=== PATIENT | male | born 1955 | race Caucasian/White ===

== ENCOUNTER → 2023-05-17 11:43 | Outpatient (BNVA) | payer MEDICARE, SELFPAY | PROVIDERS: PCP Family Medicine; Visit Provider Nurse Practitioner Family | DX: E55.9 Vitamin D deficiency, unspecified (principal); Z13.6 Encounter for screening for cardiovascular disorders; Z79.899 Other long term (current) drug therapy; Z12.5 Encounter for screening for malignant neoplasm of prostate; R10.13 Epigastric pain; Z12.11 Encounter for screening for malignant neoplasm of colon | CPT/HCPCS: 80053; 80061; 81003; 82150; 82306; 83036; 83690; 84443; 85025; G0103 ==

== ENCOUNTER 2023-05-25 14:23 | Outpatient (CLI) | payer MEDICARE, SELFPAY ==
--- NOTE | 2023-05-25 14:30 | CTR_ITS ---
PROCEDURE INFORMATION: Exam: CT Abdomen And Pelvis With Contrast Exam date and time: 05/25/2023 3:43 PM Age: 68 years old Clinical indication: Generalized; Patient HX: All over abdominal pain and into back x 3 months; Additional info: R10.9 - unspecified abdominal pain TECHNIQUE: Imaging protocol: Computed tomography of the abdomen and pelvis with contrast. Radiation optimization: All CT scans at this facility use at least one of these dose optimization techniques: automated exposure control; mA and/or kV adjustment per patient size (includes targeted exams dose is matched to clinical indication); or iterative reconstruction. Contrast material: OMNIPAQUE 350; Contrast volume: 95 ml; Contrast route: INTRAVENOUS (IV); Other contrast: Oral, omnipaque 350, 40ml; REPORTING DATA: Count of CT and Cardiac NM exams in prior 12 months: This patient has received 0 known CTs and 0 known cardiac nuclear medicine studies in the 12 months prior to the current study. COMPARISON: No relevant prior studies available. RADIATION DOSE METRICS: Total DLP (mGy-cm): 570 FINDINGS: Liver: No acute findings. Gallbladder and bile ducts: No acute findings. Pancreas: 2.5 x 3 cm pancreatic lesion at the head/uncinate. Peripancreatic edema is present. No loculated collection no ductal dilatation. Spleen: No splenomegaly. Adrenal glands: No mass. Kidneys and ureters: No hydronephrosis. Stomach and bowel: No obstruction. Appendix: No evidence of appendicitis. Intraperitoneal space: No free air. No significant fluid collection. Vasculature: No abdominal aortic aneurysm. Proximal SMA closely abuts the above described pancreatic lesion with mild narrowing such as on series 3, image 35. Lymph nodes: No enlarged lymph nodes. Urinary bladder: Incompletely distended with circumferential wall thickening likely secondary to outlet obstruction. Reproductive: Prostatomegaly. Bones/joints: Degenerative changes without acute findings. Soft tissues: Unremarkable. CT/CT abdomen pelvis w con* [id number] IMPRESSION: Peripancreatic edema suggestive of acute pancreatitis if there is correlating elevated lipase. No loculated collection. 3 cm pancreatic lesion at the head/uncinate. Pancreatic MRI recommended for further characterization.
[2023-05-25] MEDS: iohexol 350 mg/mL 500 mL Btl (per mL) IV (15:46)
[2023-05-25] MEDS: iohexol 350 mg/mL 500 mL Btl (per mL) PO (15:46)
== END 2023-05-25 14:24 | disposition home or self-care (01) ==
PROVIDERS: PCP Family Medicine; Visit Provider Nurse Practitioner Family
DX: R10.9 Unspecified abdominal pain (principal); K86.89 Other specified diseases of pancreas
CPT/HCPCS: 74177; Q9967

== ENCOUNTER 2023-05-31 12:42 | Outpatient (CLI) | payer MEDICARE, SELFPAY ==
--- NOTE | 2023-05-31 13:00 | MR_ITS ---
WS: [id number] MRI ABDOMEN WITH AND WITHOUT CONTRAST. COMPARISON: CT 05/25/2023 Multiplanar, multisequence imaging is performed with and without contrast. Pancreas is normal size. There is soft tissue mass at the pancreatic head and uncinate process juncti on. On the precontrast breath-hold imaging mass is ill-defined measuring approximately 2.4 x 2.2 cm. There is no pancreatic duct dilatation. The fluid that was seen adjacent to the pancreatic body on th e prior CT has improved. On the postcontrast images there is peripheral enhancement of this cystic ma ss. Mass has also slightly decreased in size. Liver is normal size as visualized. Normal gallbladder and spleen. No pleural effusions. No adrenal m ass. Tiny cortical cyst within each kidney, less than a centimeter. No renal obstruction. IMPRESSION: 1. Peripherally enhancing low signal mass in the head/uncinate process of the pancreas as described o n the CT of 05/25/2023. Mass appears to slightly smaller in diameter as compared to the prior study n ow measuring 2.4 x 2.2 cm. Differential includes intrapancreatic pseudocyst, cystic neoplasm and IPMN . The previously described peripancreatic fluid has significantly improved consistent with improving pancreatitis. With the recent history of pancreatitis this could very well be a pancreatic pseudocyst . Recommend PET/CT imaging to exclude neoplasm. Short-term MRI imaging follow-up also recommended if this mass is not surgically excised or biopsied. 2. No ascites.
[2023-05-31] MEDS: gadobenate dimeglumine 20 mL vial IV (13:44)
== END 2023-05-31 12:43 | disposition home or self-care (01) ==
LOC: RAD 12:42
PROVIDERS: Visit Provider Nurse Practitioner Family
DX: K86.9 Disease of pancreas, unspecified (principal); R93.5 Abnormal findings on diagnostic imaging of other abdominal regions, including retroperitoneum
CPT/HCPCS: 74183; A9577